=== PATIENT | male | born 1990 | race Caucasian/White ===

== ENCOUNTER 2025-02-16 09:48 | Emergency (ER) | payer BC, SELFPAY ==
[2025-02-16 09:50] VITALS: BP 133/89
--- NOTE | 2025-02-16 11:09 | ED.GENMED ---
History of Present Illness
General
Chief Complaint: Musculo-Skeletal Complaint
Source: patient
Time Seen by Provider: 02/16/25 11:05
History of Present Illness
History of Present Illness:
The patient is a 34-year-old male who presented to the emergency department after falling the previous night, resulting in a fractured left wrist. The patient reports that an attempt to set the fracture was made at [facility], but due to
significant swelling, the reduction was incomplete. The hospital advised the patient to follow up with a specialist or return if symptoms of numbness occurred. The patient is currently experiencing numbness in two fingers and severe pain when moving
one of the fingers. He describes the numbness as similar to a �pins and needles� sensation, and the affected fingers feel as though they are 'asleep.' Pain is exacerbated when moving the thumb, which causes shooting pain up the wrist. The patient
also mentioned he is left-handed and confirmed that there was no imaging available for review, but he does have reports of the X-rays.
Past History
Past History
ED Past Medical History: None
Social History
Tobacco: Non-smoker
Alcohol: None
Family History
Family History: Negative Diabetes, Hypertension or CAD
Phy Exam
Physical Exam
Physical Exam:
General: Awake, Alert, Oriented X3. No acute distress.
Vitals: unremarkable
Head: Atraumatic
Eyes: Pupils equal, EOMI
Throat: Airway intact, no exudates
Neck: Trachea midline
Neuro: Nonfocal
Skin: Warm, dry, no rash
Extremities: pulses equal b/l, no edema. Left arm splinted. Left wrist appears swollen. Pain with range of motion of digits. Subjective paresthesias in the left 4th and 5th digit.
Course
Orders/Labs/Results
Orders:
Orders
02/16/25 10:28
Wrist, Left 3 Views CR [CR Wrist - Left Min 3 Views] Urgent
Comment: knonwn fracture, reduced yesterday
Reason For Exam: numbness
02/16/25 13:17
Wrist, Left 2 Views CR [CR Wrist - Left Min 2 Views] Urgent
Comment:
Reason For Exam: post reduction
Vital Signs
Initial and Last Documented VS:
Initial Vital Signs
Temp Pulse Resp BP Pulse Ox
98.9 F 98 16 133/89 98
02/16/25 09:50 02/16/25 09:50 02/16/25 09:50 02/16/25 09:50 02/16/25 09:50
Last Documented Vital Signs
Temp Pulse Resp BP Pulse Ox
98.9 F 98 16 133/89 98
02/16/25 09:50 02/16/25 09:50 02/16/25 09:50 02/16/25 09:50 02/16/25 11:11
Procedures
Joint/Fracture Reduction
Left Wrist:
Indication for procedure:: Comminuted distal radius fracture with posterior angulation
Anesthesia/sedation: Other (Hematoma block)
Injury was: closed
Further treatement: needs further treatment
Post reduction exam: stable
Capillary Refill: normal
Peripheral Pulses: radial (left): 4+ and radial (right): 4+
MDM/Problems Addressed
Differential Diagnosis Includes:
Distal radius fracture, fibular fracture
MDM/Problems Addressed:
Patient presents the emergency room because he developed some paresthesias in the left 5th and 4th digit. Patient fell and has a fracture of the radius was diagnosed couple days ago. They were unable to reduce it at the hospital. Case discussed
with Dr. Andrews. He will see the patient Tuesday morning. I administered a hematoma block which provided adequate analgesia. We were able to obtain a fairly reasonable reduction and the patient was placed in sugar-tong splint.
*Radiology
Radiology exam reviewed: radiology read reviewed
*Pulse Oximetry
SaO2: 98
Oxygen Mode of Delivery: Room air
Patient hypoxic: no
*Critical Care Note
Total Time (30-74mins, 75-104mins- exclusive of procedures): Not Applicable
ED Attending Note
-
Portions of this chart may have been created with voice recognition software.� Occasional wrong word or��sound alike� substitutions may have occurred due to the inherent limitations of voice recognition software.
Discharge Plan
Departure
Patient Disposition: Home (Routine Discharge)
Date of Disposition: 02/16/25
Time of Disposition: 13:56
Patient with high blood pressure during this ER visit?: No
Discharge Problem:
Distal radius fracture, left, Fracture of ulnar styloid
Instructions: Wrist Fracture (DC), Using Cold for Pain
Prescriptions:
No Action
sertraline 50 MG tablet
50 mg PO DAILY
Referrals:
Shashank Cameron MD [Active, Orthopedics]
Mandy Mullen PA [Family Provider, Family Practice]
Activity Restrictions/Additional Instructions:
You have an appointment with Dr. Cameron at 815 on Tuesday morning. You will receive a confirmation call around 730 that morning.
Interventions
Interventions:
*Risk Screen - Suicide Last Done: 02/16/25 09:54
*General Assessment Last Done: 02/16/25 13:00
*Neglect/Abuse Screening Last Done: 02/16/25 09:54
*ED- Fall Risk Assessment Last Done: 02/16/25 13:00
*ED COVID-19 Vaccine History Last Done: 02/16/25 13:00
*Nursing Disposition Last Done: 02/16/25 14:25
ED-Musculoskeletal Assessment Last Done: 02/16/25 13:10
Discharge Date and Time
Discharge Date/Time: 02/16/25 14:25
Print Language: OCCITAN
== END 2025-02-16 14:25 | disposition home or self-care (01) ==
LOC: EMR 09:48
PROVIDERS: EMERGENCY PHYSICIAN Emergency Medicine; FAMILY PHYSICIAN Family Medicine
DX: S52.615A Nondisplaced fracture of left ulna styloid process, initial encounter for closed fracture (principal); S52.572A Other intraarticular fracture of lower end of left radius, initial encounter for closed fracture; X58.XXXA Exposure to other specified factors, initial encounter
CPT/HCPCS: 99283; 25605; 73100; 73110

== ENCOUNTER → 2025-02-18 08:57 | Outpatient (REF) | payer BC, SELFPAY ==
[2025-02-18 09:45] LABS: Hematocrit 44.6 % (39.0-52.0); Hemoglobin 15.1 g/dL (13.0-18.0); Mean Corp Hgb Conc. 33.9 g/dL (33.0-37.0); Mean Corpuscular Volume 92.3 fL (80.0-94.0); Nucleated Red Blood Cells % 0 % (-); Platelet Count 194 10^3/uL (130-400); Red Cell Dist. Width 12.8 % (11.5-14.5)
[2025-02-18 10:09] LABS: Blood Urea Nitrogen 25 mg/dl (9-20); Calcium 9.4 mg/dl (8.4-10.2); Carbon Dioxide 30 mmol/L (22-30); Chloride 105 mmol/L (98-107); Glucose 99 mg/dl (70-99); Potassium 4.4 mmol/L (3.5-5.1); Sodium 141 mmol/L (135-145); eGFR > 60.00
== END ==
LOC: REG 08:57
PROVIDERS: ATTENDING PHYSICIAN Orthopaedic Surgery Hand Surgery; FAMILY PHYSICIAN Family Medicine
DX: Z01.818 Encounter for other preprocedural examination (principal)
CPT/HCPCS: 36415; 80048; 85025